=== PATIENT | female | born 1965 ===

== ENCOUNTER → 2019-02-21 06:23 | Outpatient (CLI) | payer OTHER ==
[~2019-02-21 06:23] MED LIST: DICLOFENAC POTA50 MG PO
== END | disposition home or self-care (01) ==
LOC: LAB 06:23
DX: D64.89 Other specified anemias (principal); E88.89 Other specified metabolic disorders; D68.8 Other specified coagulation defects; N39.0 Urinary tract infection, site not specified; Z22.322 Carrier or suspected carrier of Methicillin resistant Staphylococcus aureus; Z76.89 Persons encountering health services in other specified circumstances; I10 Essential (primary) hypertension

== ENCOUNTER 2019-03-03 07:45 | Inpatient (IN) | payer OTHER ==
[~2019-03-03] VITALS: Ht 170.2 cm; Wt 93.9 kg
== END 2019-03-11 15:15 | DRG 470 ==
LOC: EDSTATUS 07:45 → ADM 07:45 → SURG 03-08 05:50 → O/R 03-08 05:50 → SURH 03-08 07:00 → SURG 03-08 13:54
PROVIDERS: ADMIT Orthopaedic Surgery
PROC: 0SRC0J9 Replacement of Right Knee Joint with Synthetic Substitute, Cemented, Open Approach (ICD-10-PCS; principal; 2019-03-08 07:00)
DX: M17.11 Unilateral primary osteoarthritis, right knee (principal)

== ENCOUNTER 2022-09-13 07:41 | Outpatient (CLI) | payer OTHER | END 2022-09-13 07:59 | disposition home or self-care (01) | LOC: LAB 07:41 | PROVIDERS: ATTEND Orthopaedic Surgery | DX: E55.9 Vitamin D deficiency, unspecified (principal); M85.9 Disorder of bone density and structure, unspecified; E56.1 Deficiency of vitamin K ==

== ENCOUNTER 2022-12-15 06:39 | Outpatient (CLI) | payer OTHER | END 2022-12-15 06:40 | disposition home or self-care (01) | LOC: LAB 06:39 | PROVIDERS: ATTEND Orthopaedic Surgery | DX: D64.9 Anemia, unspecified (principal); E88.9 Metabolic disorder, unspecified; D68.8 Other specified coagulation defects; N39.0 Urinary tract infection, site not specified; A49.02 Methicillin resistant Staphylococcus aureus infection, unspecified site; E11.9 Type 2 diabetes mellitus without complications; I49.9 Cardiac arrhythmia, unspecified; I10 Essential (primary) hypertension; M25.552 Pain in left hip; M17.12 Unilateral primary osteoarthritis, left knee; M79.652 Pain in left thigh; M79.605 Pain in left leg; M54.6 Pain in thoracic spine; M54.50 Low back pain, unspecified; Z76.89 Persons encountering health services in other specified circumstances ==

== ENCOUNTER 2022-12-24 10:00 | Inpatient (IN) | payer OTHER ==
[~2022-12-24] VITALS: Ht 170.2 cm; Wt 99.8 kg
[2022-12-29] MEDS ORDERED: CELECOXIB200 MG (14:51)
[2022-12-29] MEDS ORDERED: GABAPENTIN100 M2 (14:51)
[2022-12-29] MEDS ORDERED: XARELTO10 M1 (14:51)
[2022-12-29] MEDS ORDERED: DICLOFENAC POTA50 MG (14:52)
[2022-12-29] MEDS ORDERED: VITAMIN D325 MCG (14:52)
== END 2023-01-01 14:42 | disposition home or self-care (01) | DRG 470 ==
LOC: SURH 12-29 07:00 → O/R 12-29 10:07 → SURH 12-29 10:07
PROVIDERS: ADMIT Orthopaedic Surgery; ATTEND Orthopaedic Surgery
PROC: 0SRD0J9 Replacement of Left Knee Joint with Synthetic Substitute, Cemented, Open Approach (ICD-10-PCS; principal; 2022-12-29 07:00)
PROC: 30233N1 Transfusion of Nonautologous Red Blood Cells into Peripheral Vein, Percutaneous Approach (ICD-10-PCS; 2023-01-01)
DX: M17.12 Unilateral primary osteoarthritis, left knee (principal); D62 Acute posthemorrhagic anemia; Z96.651 Presence of right artificial knee joint; Z20.822 Contact with and (suspected) exposure to COVID-19